=== PATIENT | male | born 1980 | race Caucasian/White ===

== ENCOUNTER 2017-10-21 20:56 | Emergency (ER) | payer MEDICAID ==
--- NOTE | 2017-10-21 21:25 | EDM.PDOCBH ---
ED HPI GENERAL MEDICAL PROBLEM - General Stated Complaint: OVERDOSE Time Seen by Provider: 10/21/17 20:56 Source of Information: Reports: Patient, EMS, Family, Police History Limitations: Reports: Combative/Threatening, Intoxication - History of Present Illness INITIAL COMMENTS - FREE TEXT/NARRATIVE: Patient brought via ambulance with report of Cyclobenzaprine overdose. Patient tells me that he only took two pills and denies any recent or remote suicidal intent or attempts. EMS brought along his cyclobenzaprine bottle which is empty and was filled with #30 tablets of Cyclobenzaprine 10mg two days ago (the date on the Rx was 3 days ago but he couldn't pay for it so got it one day later ). I visited with his [id number] on the phone since she was the one who reported the overdose. She tells me that patient came over to their house around 1030 this morning and was noticeably alcohol intoxicated. She says that he continued to drink all day long. This evening about 1945 pt's came over and they were arguing and patient grabbed the Cyclobenzaprine bottle and emptied it into his mouth and swallowed all of the tablets with some alcohol before they could stop him. [id number] tried to get the tablets out of his mouth and he bit her finger. She doesn't know how many tablets were in the bottle but could tell that it was more than just a few. She also tells me that 2-3 weeks ago patient was placed on a 72-hour hold and taken to the [facility] in [place] after threatening to shoot himself; he only spent 3 days there. EMS tells me that the [employer] pest locator who was on the scene when they arrived to get him told them that just 3 days ago patient was at the [facility] again but not sure how long. - Related Data Allergies Allergy/AdvReac Type Severity Reaction Status Date / Time refuses to answer Allergy Other Uncoded 10/21/17 23:07 Home Meds: Home Meds ALPRAZolam [Alprazolam] 0.5 mg PO TID PRN 10/21/17 [History] Albuterol [Proair HFA] 2 puff INH Q4HR PRN 10/21/17 [History] Cyclobenzaprine [Flexeril] 10 mg PO TID 10/21/17 [History] Diclofenac Sodium [IJD: Diclofenac Sodium] 75 mg PO WITHBREAKFAST 10/21/17 [ History] Escitalopram [Lexapro] 20 mg PO DAILY 10/21/17 [History] diphenhydrAMINE HCl [Sleep Aid] 25 mg PO BEDTIME PRN 10/21/17 [History] ED ROS GENERAL - Review of Systems Review Of Systems: See Below Constitutional: Denies: Fever, Weakness, Diaphoresis HEENT: Denies: Throat Pain, Vision Change Respiratory: Denies: Shortness of Breath, Cough Cardiovascular: Denies: Chest Pain, Syncope GI/Abdominal: Denies: Abdominal Pain, Vomiting : Reports: No Symptoms Musculoskeletal: Reports: No Symptoms Skin: Denies: Cyanosis, Jaundice, Mottled, Pallor, Diaphoresis Neurological: Reports: Difficulty Walking (consistent with intoxication). Denies: Confusion, Seizure, Trouble Speaking, Weakness Psychiatric: Reports: Agitation ED EXAM, BEHAVIORAL HEALTH - Physical Exam Exam: See Below Exam Limited By: Other (Intoxication, combative/threatening behavior, uncooperative) General Appearance: Alert, WD/WN, No Apparent Distress, Anxious Eye Exam: Bilateral Eye: EOMI, Normal Inspection, PERRL Ears: Normal External Exam, Hearing Grossly Normal Nose: Normal Inspection, No Blood Throat/Mouth: Normal Inspection, Normal Lips, Normal Voice, No Airway Compromise Head: Atraumatic, Normocephalic Neck: Normal Inspection, Full Range of Motion Respiratory/Chest: No Respiratory Distress, Lungs Clear, Normal Breath Sounds, No Accessory Muscle Use Cardiovascular: Regular Rate, Rhythm, No Murmur, Tachycardia (mild tachycardia at times) GI/Abdominal: Normal Bowel Sounds, Soft, Non-Tender Extremities: Normal Inspection, Normal Range of Motion, Non-Tender, No Pedal Edema Neurological: Alert, CN II-XII Intact, Normal Cognition, No Motor/Sensory Deficits, Oriented x 3 Psychiatric: Alert, Normal Cognition, Oriented, Agitated, Uncooperative, Threatening Behavior Skin Exam: Warm, Dry, Intact, No rash, Erythema (mild) COURSE, BEHAVIORAL HEALTH COMP - Course Vital Signs: Last Vital Signs Temp Pulse 117 H 10/21/17 21:29 Resp 20 10/21/17 21:29 BP 125/62 10/21/17 21:29 Pulse Ox 92 L 10/21/17 21:29 Orders, Labs, Meds: Active Orders 24 hr Category Date Time Status DRUG SCREEN, URINE [URCHEM] Stat Lab 10/21/17 21:12 Ordered LORazepam [Ativan] Med 10/21/17 22:31 Ordered 0.5 mg IM Q1H PRN Medication Orders Lorazepam (Ativan) 0.5 mg IM Q1H PRN PRN Reason: Agitation Laboratory Tests 10/21/17 10/21/17 10/21/17 Range/Units 21:20 21:45 21:45 WBC 10.6 H (5.0-10.0) 10^3/uL RBC 4.66 (4.50-6.00) 10^6/uL Hgb 16.1 (13.0-17.0) g/dL Hct 47.4 (40.0-52.0) % MCV 101.5 H (82.0-92.0) fL MCH 34.5 H (27.0-31.0) pg MCHC 34.0 (32.0-36.0) g/dL RDW 12.7 (11.5-14.5) % Plt Count 331 H (150-300) 10^3/uL MPV 8.0 (7.4-10.4) fL Neut % (Auto) 43.9 L (50.0-70.0) % Lymph % (Auto) 40.3 H (20.0-40.0) % Mitchell % (Auto) 10.6 H (2.0-8.0) % Eos % (Auto) 4.4 H (1.0-3.0) % Baso % (Auto) 0.8 (0.0-1.0) % Neut # (Auto) 4.6 (2.5-7.0) 10^3/uL Lymph # (Auto) 4.3 H (1.0-4.0) 10^3/uL Mitchell # (Auto) 1.1 H (0.1-0.8) 10^3/uL Eos # (Auto) 0.5 H (0.1-0.3) 10^3/uL Baso # (Auto) 0.1 (0.0-0.1) 10^3/uL Sodium 149 H (136-145) mmol/L Potassium 4.6 (3.3-5.3) mmol/L Chloride 106 (98-115) mmol/L Carbon Dioxide 30.9 (21.0-32.0) mmol/L BUN 10 (6-25) mg/dL Creatinine 0.73 (0.51-1.17) mg/dL Est Cr Clr Drug Dosing TNP Estimated GFR (MDRD) > 60 mL/min Glucose 75 (70-110) mg/dL Calcium 9.5 (8.7-10.3) mg/dL Urine Opiates Screen Negative (NEGATIVE) Ur Oxycodone Screen Negative (NEGATIVE) Urine Methadone Screen Negative (NEGATIVE) Ur Propoxyphene Screen Negative (NEGATIVE) Acetaminophen 0.0 L (10.0-30.0) ug/mL Ur Barbiturates Screen Negative (NEGATIVE) Ur Tricyclics Screen Negative (NEGATIVE) Ur Phencyclidine Scrn Negative (NEGATIVE) Ur Amphetamine Screen Negative (NEGATIVE) U Methamphetamines Scrn Negative (NEGATIVE) U Benzodiazepines Scrn Negative (NEGATIVE) U Cocaine Metab Screen Negative (NEGATIVE) U Marijuana (THC) Screen Negative (NEGATIVE) Ethyl Alcohol 371 H* (0-3) mg/dL Medications Generic Name Dose Route Start Last Admin Trade Name Freq PRN Reason Stop Dose Admin Lorazepam 0.5 mg 10/21/17 22:31 Ativan IM Q1H PRN Agitation Discontinued Medications Generic Name Dose Route Start Last Admin Trade Name Freq PRN Reason Stop Dose Admin Lorazepam Confirm 10/21/17 22:26 Ativan Administered 10/21/17 22:27 Dose 4 mg .ROUTE .STK-MED ONE Re-Assessment/Re-Exam: Patient was noticeably intoxicated on arrival with hyperactivity the effect rather than sedative effect. I consulted Poison Control for treatment options with Cyclobenzaprine overdose and reviewed UpToDate as well. ETOH was 371, drug screen was negative. Other labs essentially normal. EKG NSR with rate of 99. We had to physically restrain him (with police assistance) to get a blood draw and an IV was not placed because he would not have left it in. Patient was inappropriate with a nurse and threatened police, garnett machine operator, EMS and myself with a lawsuit. We tried several times to explain to him why he needed to be transported to [facility] for treatment but he would not listen or cooperate. He was even accompanied outside for a cigarette twice to try to bargain with him and gain his cooperation. I feel that placing a hold is the only safe option for getting this patient the treatment that he needs. Patient was agitated and uncooperative from the time he was brought in until he left involuntarily with a hold. Police and garnett machine operator were called in to help us to safely deal with him and to accompany EMS to the [facility] where he was accepted for treatment by Dr. Collazo (hospitalist). Patient remained medically stable throughout the ER course and was discharged via ambulance. Departure - Departure Time of Disposition: 22:00 Disposition: DC/Tfer to Acute Hospital 02 Condition: Good Clinical Impression: Suicidal behavior with attempted self-injury Drug overdose, intentional Qualifiers: Encounter type: initial encounter Qualified Code(s): T50.902A - Poisoning by unspecified drugs, medicaments and biological substances, intentional self-harm , initial encounter Alcohol intoxication Qualifiers: Complication of substance-induced condition: uncomplicated Qualified Code(s): F10.920 - Alcohol use, unspecified with intoxication, uncomplicated - Discharge Information Referrals: Karla Macias PA-C [Primary Care Provider] - - My Orders Last 24 Hours: My Active Orders 10/21/17 21:12 DRUG SCREEN, URINE [URCHEM] Stat 10/21/17 22:31 LORazepam [Ativan] 0.5 mg IM Q1H PRN - Assessment/Plan Last 24 Hours: My Active Orders 10/21/17 21:12 DRUG SCREEN, URINE [URCHEM] Stat 10/21/17 22:31 LORazepam [Ativan] 0.5 mg IM Q1H PRN
[2017-10-21 22:13] LABS: CHLORIDE,CL 106 mmol/L (98-115); SODIUM,NA 149 mmol/L (136-145)
[2017-10-21] MEDS ORDERED: LORazepam 2 MG/ML SDV ONE (22:26)
[2017-10-21] MEDS ORDERED: LORazepam 2 MG/ML SDV IM PRN (22:31)
== END 2017-10-21 22:15 ==
LOC: KA.ED 20:56
DX: T48.1X1A Poisoning by skeletal muscle relaxants [neuromuscular blocking agents], accidental (unintentional), initial encounter (principal); F10.129 Alcohol abuse with intoxication, unspecified; Z79.899 Other long term (current) drug therapy; Y90.8 Blood alcohol level of 240 mg/100 ml or more
CPT/HCPCS: 36415; 80048; 80305; 85025; 93005; 99285; G0480